=== PATIENT | male | born 1975 | race African-American/Black ===

== ENCOUNTER 2021-02-03 17:59 | Emergency (ER) | payer OTHER, BC ==
[2021-02-03 18:10] VITALS: BP 143/74; PULSE 73; TEMP 98.2; BMI 40.7
== END 2021-02-03 18:53 | disposition home or self-care (01) ==
LOC: JERFT 17:59
DX: S13.4XXA Sprain of ligaments of cervical spine, initial encounter (principal); V49.40XA Driver injured in collision with unspecified motor vehicles in traffic accident, initial encounter
CPT/HCPCS: 99281-25